=== PATIENT | female | born 1975 | race African-American/Black ===

== ENCOUNTER 2018-12-20 14:39 | Outpatient (CLI) | payer OTHER ==
--- NOTE | 2018-12-20 14:56 | RAD ---
XR Lumbar Spine 2 Or 3 View History: [Dorsalgia] Comparison: None. Findings: 5 nonrib-bearing lumbar-type vertebrae. No fracture. No malalignment. Mild narrowing of the L5/S1 disc space. This significant listhesis. Paraspinal soft tissues are unremarkable. Low-grade levoscoliosis centere d at L1. Impression: Low-grade levoscoliosis centered at L1 and mild degenerative disc space disease at L5/S1.
== END 2018-12-20 14:40 | disposition home or self-care (01) ==
LOC: BICRAD 14:39
PROVIDERS: ATTEND Family Medicine
DX: M54.9 Dorsalgia, unspecified (principal); M41.9 Scoliosis, unspecified; M51.37 Other intervertebral disc degeneration, lumbosacral region
CPT/HCPCS: 72100

== ENCOUNTER 2021-01-14 15:17 | Outpatient (CLI) | payer OTHER | END 2021-01-14 15:18 | disposition home or self-care (01) | LOC: BICMAMMO 15:17 | PROVIDERS: ATTEND Family Medicine | DX: Z12.31 Encounter for screening mammogram for malignant neoplasm of breast (principal); N64.89 Other specified disorders of breast | CPT/HCPCS: 77063; 77067 ==

== ENCOUNTER 2021-02-27 09:22 | Outpatient (CLI) | payer OTHER | END 2021-02-27 09:23 | disposition home or self-care (01) | LOC: BICMAMMO 09:22 | PROVIDERS: ATTEND Family Medicine | DX: R92.2 Inconclusive mammogram (principal) | CPT/HCPCS: G0279 ==

== ENCOUNTER 2021-08-28 10:02 | Outpatient (CLI) | payer OTHER | END 2021-08-28 10:03 | disposition home or self-care (01) | LOC: BICRAD 10:02 | PROVIDERS: ATTEND Family Medicine | DX: M79.645 Pain in left finger(s) (principal) ==